=== PATIENT | female | born 1945 | race Caucasian/White ===

== ENCOUNTER 2021-09-19 16:58 | Outpatient (RCR) | payer MEDICARE, SELFPAY ==
--- NOTE | 2021-09-19 17:35 | PTOPEVAL ---
Thank you for referring Magaly King to [facility].? The patient is scheduled to be seen for therapy? __2__x/week for 10 visits. Please review, sign, date and return this plan of care SKYLER. I agree with and certify that the following plan of care is medically necessary. Referring Physician Date Admitting Provider: Attending Provider: Harjeet Kerns Referring Provider: AshleighPT Outpatient Evaluation Start: 09/19/21 16:44 Freq: Status: Active Protocol: Document 09/19/21 16:45 NORAH (Rec: 09/19/21 17:34 NORAH [email or web address]) Therapy Assessment Status Assessment Status Assessment Status Evaluation Evaluation Information Problem Diagnosis chronic right shoulder pain, neck pain Onset 08/25/21 Subjective Information Pt. reports that she has had Query Text:As Reported By Patient/ neck pain for years. She Family reports she has recently noticed difficulty with sleeping at night due to pressure building into the neck. She states that she has now had to sleep on her sofa upright. She reports that turning her head while driving has started to become difficult. She notices more frequent congestion and ringing in her ears. She reports that she was referred to PT to address her neck pain . Pain Assessment Timing of Pain Assessment Timing of Pain Assessment Pre-Treatment Pain Scale Pain Scale Used Numeric (1 - 10) Self Report Pain Assessment Neck Reported Pain Level 2 Pain Description Aching,Pressure,Tightness Pain Frequency Continuous Lowest Pain Intensity 2 Greatest Pain Intensity 9 Pain Score Pain Score 2: Self Report Interventions Used Interventions Used By Clinicians Electrical Stimulation, Exercise,Mobilization,Manual Therapy Techniques Cervical and Lumbar ROM Cervical ROM Cervical Flexion (0-60) 50 Query Text:Active in Degrees Cervical Extension (0-70) 20 Query Text:Active in Degrees Cervical Rotation Right (0-90) 50 Query Text:Active in Degrees Cervical Rotation Left (0-90) 45 Query Text:Active in Degrees Upper Extremity Range of Motion General Upper Extremity Range of Motion Gross Upper Extremity Range of Motion -bilateral shoulder f
== END 2021-10-25 17:00 | disposition home or self-care (01) ==
LOC: CHSPT 16:58
DX: M25.511 Pain in right shoulder (principal); G89.29 Other chronic pain
CPT/HCPCS: 97014; 97110; 97140; 97161; G0283

== ENCOUNTER 2024-06-08 07:58 | Outpatient (RCR) | payer MEDICARE, SELFPAY ==
--- NOTE | 2024-06-08 09:01 | OPREHPOC ---
Outpatient Therapy Plan of Care This is a Multidisciplinary Plan of Care that may contain components documented by all disciplines (PT, OT, and ST.) PT Problem 1 PT Problem #1 Knowledge Deficit PT Goal 1 Goal / Goal Update 1. independent and compliant with HEP Target Visit 6 PT Problem 2 PT Problem #2 Pain PT Goal 1 Goal / Goal Update 1. patient to report no more than 3/10 pain at worst in the L knee 2. patient to report no more than 2/10 pain at worst in the L shoulder Target Visit 12 PT Problem 3 PT Problem #3 Impaired Range of Motion PT Goal 1 Goal / Goal Update 1. improve active L shoulder flexion to 140 degrees or better 2. improve active L shoulder ER to 80 degrees in 90 degrees abduction 3. improve active L shoulder IR to 50 degrees in 90 degrees abduction 4. improve active L knee flexion to 130 degrees Target Visit 12 PT Problem 4 PT Problem #4 Impaired Strength PT Goal 1 Goal / Goal Update 1. improve L hip flex to 4+/5 or beter 2. improve L knee ext to 5/5 3. improve L shoulder strength to 4/5 or better overall Target Visit 12 PT Problem 5 PT Problem #5 Impaired Functional Mobil PT Goal 1 Goal / Goal Update 1. quick dash to display less than 15% functional deficits 2. LEFS to display less than 20% functional deficits 3. patient to return to dressing, bathing, and personal hygiene with ease using the L UE. 4. patient to ambulate with normal gait mechanics on level surfaces Target Visit 12
--- NOTE | 2024-06-08 09:01 | PTOPEVAL1 ---
Assessment and note entered by JT File, PT Evaluation Information Assessment Status Evaluation Diagnosis L humerus fracture, L patella fracture ICD-10 Condition Codes (PT) M25.512,Pain in left knee M25.562 Onset 04/20/24 Subjective Information patient reports she fell and injured her L shoulder and L knee on 04/20/24. she reports she was helping her with harvest and bumped into a piece of the tractor and fell and broke the L arm and L knee cap. she reports she was in a sling for 6 weeks, and had a brace on the L knee for a week. she reports she has pain still in both the L knee and L shoulder. she reports she was told she is healing on her xrays. she reports with the shoulder she has difficulty with getting dressed and combing her hair. she reports she struggles to lift her arm up. she reports with the knee she has difficulty with walking, stairs, and getting up and down from sitting. Reported Pain Level Pain Score 0,0: Self Report Assessment PT Clinical Summary mrs. desai is an 79 yo woman who presents to skilled PT services for rehab following L humerus and L patella fracture. she presents today with deficits in L shoulder rom, L knee rom, normal gait mechanics, and L UE and LE strength. continued skilled PT is indicated to improve these objective/functional deficits and allow patient to return to her prior level functional activity performance/quality of life. Plan of Care Interventions Electrical Stimulation,Gait Training,Hot Pack/Cold Pack,Manual Therapy,Neuro Re-education,Patient/ Caregiver Educati,Therapeutic Activities, Therapeutic Exercise PT Services Indicated Yes Treatment Frequency and 3x weekly for 12 visits Duration These treatments will address the objective and functional deficits as defined above. The patient will be advanced safely and appropriately in order for the patient to progress towards his/her prior level of function. Additional exercises will be introduced and as well as a comprehensive home exercise program upon discharge, if needed, ?to ensure carryover of functional gains achieved in the clinic. This treatment plan has been reviewed and agreement upon by the patient.
--- NOTE | 2024-07-01 10:53 | OPREHPOC ---
Outpatient Therapy Plan of Care This is a Multidisciplinary Plan of Care that may contain components documented by all disciplines (PT, OT, and ST.) PT Problem 1 PT Problem #1 Knowledge Deficit PT Goal 1 Goal / Goal Update 1. independent and compliant with HEP Target Visit 6 Progress Partially Met PT Goal 2 Goal / Goal Update continue to progress PT Problem 2 PT Problem #2 Pain PT Goal 1 Goal / Goal Update 1. patient to report no more than 3/10 pain at worst in the L knee 2. patient to report no more than 2/10 pain at worst in the L shoulder Target Visit 12 Progress Met PT Problem 3 PT Problem #3 Impaired Range of Motion PT Goal 1 Goal / Goal Update 1. improve active L shoulder flexion to 140 degrees or better -not met 2. improve active L shoulder ER to 80 degrees in 90 degrees abduction -not met 3. improve active L shoulder IR to 50 degrees in 90 degrees abduction -met 4. improve active L knee flexion to 130 degrees - not met Target Visit 12 PT Goal 2 Goal / Goal Update continue PT Problem 4 PT Problem #4 Impaired Strength PT Goal 1 Goal / Goal Update 1. improve L hip flex to 4+/5 or beter 2. improve L knee ext to 5/5 3. improve L shoulder strength to 4/5 or better overall Target Visit 12 Progress Not Met PT Goal 2 Goal / Goal Update continue PT Problem 5 PT Problem #5 Impaired Functional Mobility PT Goal 1 Goal / Goal Update 1. quick dash to display less than 15% functional deficits 2. LEFS to display less than 20% functional deficits 3. patient to return to dressing, bathing, and personal hygiene with ease using the L UE. 4. patient to ambulate with normal gait mechanics on level surfaces Target Visit 12 Progress Not Met PT Goal 2 Goal / Goal Update continue
--- NOTE | 2024-07-01 10:53 | PTOPPROG ---
Assessment and note entered by Evette Zuleta, PT Evaluation Information Assessment Status Progress Diagnosis L humerus fx, L patella fx ICD-10 Condition Codes (PT) Pain in left shoulder M25.512,Pain in left knee M25.562 Onset 04/20/24 Subjective Information Magaly King reports that her left arm and knee are coming along. She still notes occasional pain in the left knee when she turns quickly or steps the wrong way. She is also still taking stairs one at a time. She also notes the left shoulder still has a little pain at all times and is worse with overhead reaching. She notes she can not reach into overhead cabinets at this time. Assessment PT Clinical Summary Magaly King has completed 10 skilled PT visits following a left humerus fracture and left patella fracture sustained on 04/20/24 after a fall. She is reporting improvements overall but she still has difficulty reaching overhead, turning while walking, and navigating stairs reciprocally. She objectively demonstrates improvements in left shoulder AROM however, she is still demonstrating functional limitations with shoulder flexion, abduction, and external rotation. She has maintained left knee AROM. She continues to have strength deficits in the left knee and left shoulder. She will continue to benefit from skilled PT to further address ongoing limitations and improve functional mobility. Plan of Care Interventions Patient/Caregiver Education,Therapeutic Exercise PT Services Indicated Yes Treatment Frequency and Continue skilled PT 2 times a week for 10 visits. Duration These treatments will address the objective and functional deficits as defined above. The patient will be advanced safely and appropriately in order for the patient to progress towards his/her prior level of function. Additional exercises will be introduced and as well as a comprehensive home exercise program upon discharge, if needed, ?to ensure carryover of functional gains achieved in the clinic. This treatment plan has been reviewed and agreement upon by the patient.
--- NOTE | 2024-07-24 09:25 | PCPTNOTE ---
Cancelled session due to weather.
--- NOTE | 2024-08-07 09:31 | OPREHPOC ---
Outpatient Therapy Plan of Care This is a Multidisciplinary Plan of Care that may contain components documented by all disciplines (PT, OT, and ST.) PT Problem 1 PT Problem #1 Knowledge Deficit PT Goal 1 Goal / Goal Update 1. independent and compliant with HEP Target Visit 6 Progress Met PT Goal 2 Goal / Goal Update . PT Problem 2 PT Problem #2 Pain PT Goal 1 Goal / Goal Update 1. patient to report no more than 3/10 pain at worst in the L knee. met 2. patient to report no more than 2/10 pain at worst in the L shoulder Target Visit 12 Progress Partially Met PT Problem 3 PT Problem #3 Impaired Range of Motion PT Goal 1 Goal / Goal Update 1. improve active L shoulder flexion to 140 degrees or better -not met 2. improve active L shoulder ER to 80 degrees in 90 degrees abduction -not met 3. improve active L shoulder IR to 50 degrees in 90 degrees abduction -met 4. improve active L knee flexion to 130 degrees - met Target Visit 12 PT Goal 2 Goal / Goal Update continue PT Problem 4 PT Problem #4 Impaired Strength PT Goal 1 Goal / Goal Update 1. improve L hip flex to 4+/5 or better. met 2. improve L knee ext to 5/5. met 3. improve L shoulder strength to 4/5 or better overall. not met Target Visit 12 Progress Not Met PT Goal 2 Goal / Goal Update continue PT Problem 5 PT Problem #5 Impaired Functional Mobility PT Goal 1 Goal / Goal Update 1. quick dash to display less than 15% functional deficits 2. LEFS to display less than 20% functional deficits 3. patient to return to dressing, bathing, and personal hygiene with ease using the L UE. met 4. patient to ambulate with normal gait mechanics on level surfaces. met Target Visit 12 Progress Partially Met PT Goal 2 Goal / Goal Update continue
--- NOTE | 2024-08-07 09:32 | PTOPDC ---
Assessment and note entered by JT File, PT Evaluation Information Assessment Status Discharge Diagnosis L humerus fx, L patella fx ICD-10 Condition Codes (PT) Pain in left shoulder M25.512,Pain in left knee M25.562 Onset 04/20/24 Subjective Information patient reports her L shoulder and L knee feel better. she reports her shoulder did flare up recently from some activities at home where she was doing too much lifting with the L shoulder. she reports she is much better overall. she reports she will be consistent with her HEP at home. Reported Pain Level Pain Score 1,3: Self Report Pain Score 0,2: Self Report Assessment PT Clinical Summary mrs. desai has attended 20 visits of skilled PT for her L knee and L shoulder. she has made significant improvements in strength, rom, and functional activity performance. she is ready to DC to an independent HEP of these two areas today. she has met or made partial progress towards all goals. Plan of Care PT Services Indicated Yes
== END 2024-08-07 10:20 | disposition home or self-care (01) ==
LOC: CHSPT 07:58
DX: M25.512 Pain in left shoulder (principal); M25.562 Pain in left knee
CPT/HCPCS: 97110; 97140; 97161; 97750

== ENCOUNTER 2025-02-08 08:55 | Outpatient (RCR) | payer MEDICARE, SELFPAY ==
--- NOTE | 2025-02-08 09:50 | OPREHPOC ---
Outpatient Therapy Plan of Care This is a Multidisciplinary Plan of Care that may contain components documented by all disciplines (PT, OT, and ST.) PT Problem 1 PT Problem #1 Knowledge Deficit PT Goal 1 Goal / Goal Update Independent and compliant with HEP. Target Visit 2 PT Problem 2 PT Problem #2 Pain PT Goal 1 Goal / Goal Update Pt to report no worse than 3/10 pain when turning her head. Target Visit 12 PT Problem 3 PT Problem #3 Impaired Strength PT Goal 1 Goal / Goal Update Pt to improve gross LE strength to 5/5 for improved efficiency when getting out of chairs and walking. Target Visit 12 PT Problem 4 PT Problem #4 Impaired Range of Motion PT Goal 1 Goal / Goal Update Pt to improve cervical flexion AROM to 60 deg. Pt to improve cervical extension AROM to 30 deg. Pt to improve cervical rotation AROM to 45 deg bilaterally. Pt to improve cervical lateral flexion AROM to 20 deg bilaterally. Target Visit 12 PT Problem 5 PT Problem #5 Impaired Functional Mobility PT Goal 1 Goal / Goal Update Pt to report being able to make turns and watch for oncoming traffic with no worse than 3/10 neck pain when turning. Pt to report 10% or less perceived disability on NDI. Pt to report 20% or less perceived disability on LEFS. Pt to perform 5xSTS in 13 seconds or less without UEs. Target Visit 12
--- NOTE | 2025-02-08 09:51 | PTOPEVAL1 ---
Assessment and note entered by Seble Calixto, PT Evaluation Information Assessment Status Evaluation ICD-10 Condition Codes (PT) Cervicalgia M54.2 Other ICD-10 Condition Codes ( R29.898 PT) Onset 01/25/25 Subjective Information Pt reports her neck pain has been going on for years but it took a turn for the worse 2 weeks ago . She notes extreme difficulty moving her head in all directions as well as pain with moving her neck. She is currently driving but notes a lot of difficulty when looking for oncoming traffic and making turns due to her pain and stiffness, reporting that she has to turn her whole body when looking for cars. Also notes feeling weak in her legs and has difficulty getting out of chairs and is unable to immediately walk after standing up out of a chair. States her goal is to relieve her neck pain and get more motion in her neck. Reported Pain Level Pain Score 0: Self Report Assessment PT Clinical Summary Mrs. King is an 79 yo female presenting to skilled PT evaluation for neck pain and leg weakness. She demonstrates significant restrictions in her cervical AROM that interferes with her ability to drive safely to watch for oncoming traffic. She also demonstrates gross LE weakness that prevents her from efficiently getting out of a chair and walking. She will benefit from skilled PT intervention to improve on these deficits to be able to perform daily tasks such as driving with less pain and difficulty. Plan of Care Interventions Electrical Stimulation,Gait Training,Hot Pack/Cold Pack,Manual Therapy,Neuro Re-education,Patient/ Caregiver Education,Therapeutic Activities, Therapeutic Exercise,Self-Care/Home Management Other Interventions TPDN PT Services Indicated Yes Treatment Frequency and 2x/week for 12 visits Duration These treatments will address the objective and functional deficits as defined above. The patient will be advanced safely and appropriately in order for the patient to progress towards his/her prior level of function. Additional exercises will be introduced and as well as a comprehensive home exercise program upon discharge, if needed, ?to ensure carryover of functional gains achieved in the clinic. This treatment plan has been reviewed and agreement upon by the patient.
--- NOTE | 2025-03-17 08:48 | OPREHPOC ---
Outpatient Therapy Plan of Care This is a Multidisciplinary Plan of Care that may contain components documented by all disciplines (PT, OT, and ST.) PT Problem 1 PT Problem #1 Knowledge Deficit PT Goal 1 Goal / Goal Update Independent and compliant with HEP. Target Visit 2 Progress Met PT Problem 2 PT Problem #2 Pain PT Goal 1 Goal / Goal Update Pt to report no worse than 3/10 pain when turning her head. Target Visit 12 Progress Not Met PT Problem 3 PT Problem #3 Impaired Strength PT Goal 1 Goal / Goal Update Pt to improve gross LE strength to 5/5 for improved efficiency when getting out of chairs and walking. Target Visit 12 Progress Not Met PT Problem 4 PT Problem #4 Impaired Range of Motion PT Goal 1 Goal / Goal Update Pt to improve cervical flexion AROM to 60 deg. Pt to improve cervical extension AROM to 30 deg. met Pt to improve cervical rotation AROM to 45 deg bilaterally. Pt to improve cervical lateral flexion AROM to 20 deg bilaterally. met Target Visit 12 Progress Partially Met PT Problem 5 PT Problem #5 Impaired Functional Mobility PT Goal 1 Goal / Goal Update Pt to report being able to make turns and watch for oncoming traffic with no worse than 3/10 neck pain when turning. Pt to report 10% or less perceived disability on NDI. met Pt to report 20% or less perceived disability on LEFS. Pt to perform 5xSTS in 13 seconds or less without UEs. met Target Visit 12 Progress Partially Met PT Goal 2 Goal / Goal Update patient to achieve 6 minute walk test without reports of throbbing in the neck. Target Visit 12
--- NOTE | 2025-03-17 08:48 | PTOPPROGNS ---
Assessment and note entered by JT File, PT Evaluation Information Assessment Status Progress ICD-10 Condition Codes (PT) Cervicalgia M54.2 Other ICD-10 Condition Codes ( R29.898 PT) Onset 01/25/25 Subjective Information patient reports she still has pain in the neck, especially with increased activities. she reports the neck was flared up the other day after reaching overhead to paint. she reports she does feel she has improved since starting PT. Assessment PT Clinical Summary mrs. desai presents to skilled PT services for her 10th skilled PT visit for neck and LE rehab. she presents this date with improved cervical rom, improved sit to stand transfer efficiency, and improved ambulation efficiency. however, she still lacks cervical rom, UE and LE strength, and has pain in the neck with prolonged activities/ ambulation. continued skilled PT is indicated to address these objective/functional deficits and meet all goals to improve her quality of life. Plan of Care Interventions Electrical Stimulation,Gait Training,Hot Pack/Cold Pack,Manual Therapy,Neuro Re-education,Patient/ Caregiver Education,Therapeutic Activities, Therapeutic Exercise,Self-Care/Home Management Other Interventions TPDN PT Services Indicated Yes Treatment Frequency and continue per initial POC Duration These treatments will address the objective and functional deficits as defined above. The patient will be advanced safely and appropriately in order for the patient to progress towards his/her prior level of function. Additional exercises will be introduced and as well as a comprehensive home exercise program upon discharge, if needed, ?to ensure carryover of functional gains achieved in the clinic. This treatment plan has been reviewed and agreement upon by the patient.
--- NOTE | 2025-03-25 10:21 | OPREHPOC ---
Outpatient Therapy Plan of Care This is a Multidisciplinary Plan of Care that may contain components documented by all disciplines (PT, OT, and ST.) PT Problem 1 PT Problem #1 Knowledge Deficit PT Goal 1 Goal / Goal Update Independent and compliant with HEP. Target Visit 2 Progress Met PT Problem 2 PT Problem #2 Pain PT Goal 1 Goal / Goal Update Pt to report no worse than 3/10 pain when turning her head. Target Visit 12 Progress Not Met PT Problem 3 PT Problem #3 Impaired Strength PT Goal 1 Goal / Goal Update Pt to improve gross LE strength to 5/5 for improved efficiency when getting out of chairs and walking. Target Visit 12 Progress Partially Met PT Problem 4 PT Problem #4 Impaired Range of Motion PT Goal 1 Goal / Goal Update Pt to improve cervical flexion AROM to 60 deg. Pt to improve cervical extension AROM to 30 deg. met Pt to improve cervical rotation AROM to 45 deg bilaterally. Pt to improve cervical lateral flexion AROM to 20 deg bilaterally. met Target Visit 12 Progress Partially Met PT Problem 5 PT Problem #5 Impaired Functional Mobility PT Goal 1 Goal / Goal Update Pt to report being able to make turns and watch for oncoming traffic with no worse than 3/10 neck pain when turning. not met Pt to report 10% or less perceived disability on NDI. met Pt to report 20% or less perceived disability on LEFS. not met Pt to perform 5xSTS in 13 seconds or less without UEs. met Target Visit 12 Progress Partially Met PT Goal 2 Goal / Goal Update patient to achieve 6 minute walk test without reports of throbbing in the neck. Target Visit 12 Progress Not Met
--- NOTE | 2025-03-25 10:21 | PTOPDC ---
Assessment and note entered by Evette Zuleta, PT Evaluation Information Assessment Status Discharge ICD-10 Condition Codes (PT) Cervicalgia M54.2 Other ICD-10 Condition Codes ( R29.898 PT) Onset 01/25/25 Subjective Information Magaly reports she is doing better overall and feels comfortable continuing with home exercises and joining the fall prevention class. She does still have neck pain with forward bending and notes stiffness in her neck. Reported Pain Level Pain Score 0: Self Report Assessment PT Clinical Summary Magaly King has completed 12 skilled PT services neck pain and LE rehab. She reports improvements overall with pain still noted with cervical flexion and general cervical stiffness. She demonstrates improved cervical rom, improved sit to stand transfer efficiency, and improved ambulation efficiency. She is independent in a home exercise program to continue cervical ROM and UE/LE strengthening. She plans to join the fall prevention class we offer as well. She has Plan of Care PT Services Indicated No
== END 2025-03-25 10:41 | disposition home or self-care (01) ==
LOC: CHSPT 08:55
PROVIDERS: Visit Provider Family Medicine
DX: S16.1XXA Strain of muscle, fascia and tendon at neck level, initial encounter (principal); R29.898 Other symptoms and signs involving the musculoskeletal system
CPT/HCPCS: 97110; 97112; 97140; 97150; 97161; 97750